=== PATIENT | female | born 1990 | race Caucasian/White ===

== ENCOUNTER 2021-11-23 08:30 | Emergency (ER) | payer OTHER ==
[~2021-11-23 08:30] MED LIST: TORADOL 10 MG T10 MG PO; ZOFRAN4 MG PO; ZOFRAN4 MG SL
[2021-11-23 09:38] LABS: HEMOGLOBIN 14.7 gm/dl (12.3-15.3); RED BLOOD COUNT 4.49 M/UL (4.00-5.10); WHITE BLOOD COUNT 12.9 K/UL (4.5-11.0)
[2021-11-23 10:02] LABS: BUN/CREATININE RATIO 10 (0-10)
[2021-11-23] MEDS ORDERED: IBUPROFEN600 MG PO (10:52)
[2021-11-23] MEDS ORDERED: ZOFRAN 4 MG TAB4 MG PO (10:52)
[2021-11-23] MEDS ORDERED: IMITREX25 MG PO (10:52)
== END 2021-11-23 12:00 | disposition home or self-care (01) ==
LOC: ER1 08:30
PROVIDERS: Physician Assistant
DX: G43.909 Migraine, unspecified, not intractable, without status migrainosus (principal); F17.210 Nicotine dependence, cigarettes, uncomplicated; Z20.822 Contact with and (suspected) exposure to COVID-19; I10 Essential (primary) hypertension; Z79.899 Other long term (current) drug therapy
CPT/HCPCS: 0240U; 71045; 80053; 81001; 82550; 82553; 84484; 84703; 85025; 87086; 93005; 96361; 96374; 96375; 99284; J1200; J1885; J2765